=== PATIENT | female | born 1930 | race Hispanic/Latino ===

== ENCOUNTER 2017-01-24 16:37 | Inpatient (IN) | payer MEDICAID, MEDICARE ==
[2017-01-24 16:38] VITALS: BMI 37.9
--- NOTE | 2017-01-24 17:46 | ED PDOC ---
Arrival/HPI - General Chief Complaint: Weakness/Neurological Deficit Time Seen by Provider: 01/24/17 17:13 Historian: Patient - History of Present Illness Narrative History of Present Illness (Text): 01/24/17 17:43 87-year-old female presents today with generalized weakness. Patient states since yesterday she has just been feeling generally weak and dizzy. Patient states 3 days ago she did fall and hit her head. She denies loss of consciousness at that time. She denies chest pain or shortness of breath. Denies fevers or chills. She is complaining of swelling in the right lower leg. She denies abdominal pain. Patient states her appetite has been good. Patient denies sick contacts at home. Patient denies blurred vision. Patient is complaining of frontal headache that she is unable to describe. Denies neck or back pain. No other complaints Time/Duration: Other (1 day) Symptom Onset: Gradual Symptom Course: Worsening Quality: Unable to Describe Severity Level: 2 Past Medical History - Provider Review Nursing Documentation Reviewed: Yes - Travel History Have you recently traveled outside [place] w/in the past 3 mons?: No - Infectious Disease Hx of Infectious Diseases: None - Tetanus Immunization Tetanus Immunization: Unknown - Cardiac Hx Heart Murmur: Yes Hx Hypertension: Yes Hx Peripheral Edema: Yes Other/Comment: CABG/CAD - Renal Hx Renal Failure: Yes - Endocrine/Metabolic Hx Diabetes Mellitus Type 2: Yes - Musculoskeletal/Rheumatological Hx Falls: No Hx Fractures: Yes (RLE) - Gastrointestinal Hx Gall Bladder Disease: Yes (Gallstones) - Genitourinary/Gynecological Hx Incontinence: Yes - Psychiatric Hx Depression: No Hx Emotional Abuse: No Hx Physical Abuse: No Hx Substance Use: No - Surgical History Hx Coronary Stent: Yes - Anesthesia Hx Anesthesia: Yes Hx Anesthesia Reactions: No Hx Malignant Hyperthermia: No - Suicidal Assessment Feels Threatened In Home Enviroment: No Family/Social History - Physician Review Nursing Documentation Reviewed: Yes Family/Social History: Unknown Family HX Smoking Status: Never Smoked Hx Alcohol Use: No Hx Substance Use: No Allergies/Home Meds Allergies/Adverse Reactions: Allergies No Known Allergies Allergy (Verified 09/21/11 19:14) Home Medications: Home Meds Medication Instructions Recorded Confirmed Fosinopril [Monopril] 10 mg PO DAILY 12/19/12 01/24/17 Furosemide [Lasix] 20 mg PO TID 12/19/12 01/24/17 Insulin Human (NPH)/Regular 35 units SC DAILY 12/19/12 01/24/17 [Novolin 70/30 (70/30 units/ml) 10 ml] Potassium Chloride 10 meq PO DAILY 12/19/12 01/24/17 Zolpidem [Ambien] 10 mg PO HS 12/19/12 01/24/17 Aspirin [Aspirin Chewable] 1 tab PO DAILY 01/24/17 01/24/17 Docusate [Colace] 1 cap PO BID 01/24/17 01/24/17 Insulin Human (NPH)/Regular 30 units SC HS 01/24/17 01/24/17 [Novolin 70/30 (70/30 units/ml) 10 ml] Omeprazole [Omeprazole] 1 tab PO BID 01/24/17 01/24/17 Simvastatin [Zocor] 1 tab PO HS 01/24/17 01/24/17 Review of Systems - Review of Systems Constitutional: Fatigue, Other (generalized weakness). absent: Fevers Respiratory: absent: SOB, Cough Cardiovascular: absent: Chest Pain, Palpitations Gastrointestinal: absent: Abdominal Pain, Diarrhea, Nausea, Vomiting Genitourinary Female: absent: Dysuria Musculoskeletal: absent: Arthralgias, Back Pain, Neck Pain Skin: absent: Rash, Pruritis Neurological: Headache, Dizziness Psychiatric: absent: Anxiety, Depression, Suicidal Ideation Physical Exam Vital Signs Reviewed: Yes Vital Signs Temp Pulse Resp BP Pulse Ox 01/24/17 20:04 121/48 L 01/24/17 17:16 98.0 F 86 18 121/61 95 Temperature: Afebrile Blood Pressure: Normal Pulse: Regular Respiratory Rate: Normal Appearance: Positive for: Well-Appearing, Non-Toxic, Comfortable Pain Distress: None Mental Status: Positive for: Alert and Oriented X 3 - Systems Exam Head: Present: Atraumatic. No: Tenderness, Contusion, Swelling Pupils: Present: PERRL Extroacular Muscles: Present: EOMI Conjunctiva: Present: Normal Mouth: Present: Moist Mucous Membranes Neck: Present: Normal Range of Motion, Trachea Midline Respiratory/Chest: Present: Good Air Exchange, Rales (slight rales at the bases bilaterally), Rhonchi. No: Respiratory Distress, Accessory Muscle Use, Wheezes , Tender to Palpation Cardiovascular: Present: Regular Rate and Rhythm Abdomen: No: Tenderness Upper Extremity: Present: Normal ROM Lower Extremity: Present: Edema (+ right calf edema, no tenderness, no erythema; ). No: CALF TENDERNESS Neurological: Present: GCS=15, Speech Normal Skin: Present: Warm, Dry, Normal Color Psychiatric: Present: Alert, Oriented x 3 Medical Decision Making ED Course and Treatment: 01/24/17 17:54 87yr old female with generalized weakness. cbc wnl cmp glucose; 137 trop: 0.03 BNP:1950 ekg; NSR with sinus arrhythmia at 85 bpm, no ST elevations, QTC 533 cxrFINDINGS: Examination limited by habitus. LUNGS: Biapical pleural thickening. Right hilar prominence. Mild to moderate interstitial prominence may reflect infection or edema. Please note that chest x-ray has limited sensitivity for the detection of pulmonary masses. PLEURA: No significant pleural effusion identified. No definite pneumothorax . CARDIOVASCULAR: Median sternotomy wires. Cardiomegaly. Dense atherosclerotic calcifications of the aorta. OSSEOUS STRUCTURES: Degenerative changes. Osseous demineralization. VISUALIZED UPPER ABDOMEN: Unremarkable. OTHER FINDINGS: None. IMPRESSION: Biapical pleural thickening. Right hilar prominence. Mild to moderate interstitial prominence may reflect infection or edema. Cardiomegaly. ua: + leukocytes head ct: FINDINGS: LIMITATIONS: Asymmetric positioning of the patient's head in the CT gantry. BRAIN: Focal area of low density is seen in the left basal ganglia, most likely representing an old/chronic lacunar infarct. No significant acute abnormality identified. Diffuse, age-related cortical atrophy and ventriculomegaly. No acute hemorrhage seen within the brain. No acute extra- axial fluid collections visualized. No evidence of significant mass effect within the brain. No CT findings to suggest an acute, large territorial infarct, however, small or early acute infarcts may not be visible on CT. VENTRICLES: No evidence of significant hydrocephalus. BONES/JOINTS: No acute fractures or other acute bony abnormality noted. SOFT TISSUES: No acute abnormality of the visualized soft tissues is seen. SINUSES: Small fluid level in the left sphenoid sinus, most likely secondary to mild acute sinusitis. Remaining visualized paranasal sinuses appear clear. MASTOID AIR CELLS: Mastoid air cells appear clear. IMPRESSION: - No acute findings seen within the brain. - See above for remaining findings. venous duplex right lower leg: no dvt 01/24/17 19:28 pt resting comfortably in er. urine culture pending blood cultures pending will start patient on rocephin IV for uti as cause of generalized weakness. laxis IV 01/24/17 20:[address] vazquez, will admit observational status to tele for CHF exacerbation with UTI and generalized weakness. he would like 40mg of laxis IV, rocephin IV. and cardiology consult with dr. monroy. all results discussed with patient/family. impression; UTI, chf exacerbation, generalized weakness admit observational status to tele. - Lab Interpretations Lab Results: 01/24/17 18:00 01/24/17 18:00 Lab Results 01/24/17 19:10: Urine Color Yellow, Urine Appearance Cloudy, Urine pH 7.0, Ur Specific [place] 1.010, Urine Protein Negative, Urine Glucose (UA) Negative, Urine Ketones Negative, Urine Blood Trace-intact H, Urine Nitrate Negative, Urine Bilirubin Negative, Urine Urobilinogen 2.0 H, Ur Leukocyte Esterase Large H, Urine RBC 1 - 3, Urine WBC 10 - 15, Ur Epithelial Cells 0 - 2, Urine Bacteria Few 01/24/17 18:00: WBC 6.2, RBC 3.79, Hgb 13.1, Hct 37.9, MCV 100.0, MCH 34.6, MCHC 34.6, RDW 13.1, Plt Count 166, MPV 11.7 H, Gran % 64.8, Lymph % (Auto) 20.2 L, [place] % (Auto) 13.5 H, Eos % (Auto) 1.3 L, Baso % (Auto) 0.2, Gran # 4.04 , Lymph # 1.3, [place] # 0.8 H, Eos # 0.1, Baso # 0.01 01/24/17 18:00: Sodium 141, Potassium 3.9, Chloride 104, Carbon Dioxide 27, Anion Gap 14, BUN 13, Creatinine 0.9, Est GFR ( Amer) > 60, Est GFR (Non- Af Amer) 59, Random Glucose 137 H, Calcium 8.9, Total Bilirubin 1.5 H, AST 33, ALT 25, Alkaline Phosphatase 75, Lactate Dehydrogenase 722 H, Total Creatine Kinase 448 H, CK-MB (CK-2) 1.9, CK-MB (CK-2) % Cancelled, Troponin I 0.03, NT- Pro-B Natriuret Pep 1950 H, Total Protein 7.1, Albumin 3.9, Globulin 3.3, Albumin/Globulin Ratio 1.2 01/24/17 16:39: POC Glucose (mg/dL) 167 H - RAD Interpretation Radiology Orders: 01/24/17 17:14 HEAD W/O CONTRAST [CT] Stat CHEST PORTABLE [RAD] Stat DUPLEX LOWER EXTRM VEIN RIGHT [US] Stat - Medication Orders Current Medication Orders: Discontinued Medications Furosemide (Lasix) 40 mg IVP STAT STA Stop: 01/24/17 19:58 Last Admin: 01/24/17 20:04 Dose: 40 mg Ceftriaxone Sodium (Rocephin 1 Gram Ivpb) 1 gm in 100 mls @ 200 mls/hr IVPB STAT STA PRN Reason: Protocol Stop: 01/24/17 20:26 Last Admin: 01/24/17 20:08 Dose: 200 mls/hr Disposition/Present on Arrival - Present on Arrival Any Indicators Present on Arrival: No History of DVT/PE: No History of Uncontrolled Diabetes: No Urinary Catheter: No History of Decub. Ulcer: No History Surgical Site Infection Following: None - Disposition Have Diagnosis and Disposition been Completed?: Yes Diagnosis: UTI (urinary tract infection), Generalized weakness, CHF (congestive heart failure) Disposition: HOSPITALIZED Disposition Time: 19:30 Patient Plan: Admission Patient Problems: Current Active Problems Problem Status Onset CHF (congestive heart failure) Acute Generalized weakness Acute UTI (urinary tract infection) Acute Condition: FAIR
--- NOTE | 2017-01-24 17:58 | RAD ---
HISTORY: weakness COMPARISON: Chest x-ray performed 12/21/12 TECHNIQUE: Chest, one view. FINDINGS: Examination limited by habitus. LUNGS: Biapical pleural thickening. Right hilar prominence. Mild to moderate interstitial prominence may reflect infection or edema. Please note that chest x-ray has limited sensitivity for the detection of pulmonary masses. PLEURA: No significant pleural effusion identified. No definite pneumothorax . CARDIOVASCULAR: Median sternotomy wires. Cardiomegaly. Dense atherosclerotic calcifications of the aorta. OSSEOUS STRUCTURES: Degenerative changes. Osseous demineralization. VISUALIZED UPPER ABDOMEN: Unremarkable. OTHER FINDINGS: None. IMPRESSION: Biapical pleural thickening. Right hilar prominence. Mild to moderate interstitial prominence may reflect infection or edema. Cardiomegaly.
[2017-01-24 18:11] LABS: BASO # 0.01 K/mm3 (0.0-2.0); BASO % 0.2 % (0.0-3.0); EOS # 0.1 (0.0-0.7); EOS % 1.3 % (1.5-5.0); GRAN # 4.04 (1.4-6.5); GRAN % 64.8 % (50.0-68.0); HEMATOCRIT 37.9 % (36.0-48.0); LYMPH # 1.3 (1.2-3.4); LYMPH % 20.2 % (22.0-35.0); MEAN CORPUSCULAR HEMOGLOBIN 34.6 pg (25.0-35.0); MEAN CORPUSCULAR HGB CONC 34.6 g/dl (31.0-37.0); MEAN PLATELET VOLUME 11.7 fl (7.0-11.0); MONO # 0.8 (0.1-0.6); MONO % 13.5 % (1.0-6.0); RED CELL DISTRIBUTION WIDTH 13.1 % (11.5-14.5); WHITE BLOOD COUNT 6.2 10^3/ul (4.5-11.0)
[2017-01-24 18:22] LABS: ALB/GLOB RATIO 1.2 (1.1-1.8); ALKALINE PHOSPHATASE 75 U/L (38-126); ALT/SGPT 25 U/L (7-56); AST/SGOT 33 U/L (14-36); BILIRUBIN,TOTAL 1.5 mg/dL (0.2-1.3); BLOOD UREA NITROGEN 13 mg/dL (7-21); CALCIUM 8.9 mg/dL (8.4-10.5); CARBON DIOXIDE 27 mmol/L (21-33); CHLORIDE 104 mmol/L (98-107); GFR AFRICAN-AMERICAN > 60; GLUCOSE,RANDOM 137 mg/dL (70-110); POTASSIUM 3.9 mmol/L (3.6-5.0); SODIUM 141 mmol/L (132-148); TOTAL PROTEIN 7.1 g/dL (5.8-8.3)
[2017-01-24 18:34] LABS: TROPONIN I 0.03 ng/mL
[2017-01-24 19:21] LABS: URINE BILIRUBIN NEGATIVE (NEGATIVE); URINE BLOOD TRACE-INTACT (NEGATIVE); URINE GLUCOSE (UA) NEGATIVE (NEGATIVE); URINE KETONE NEGATIVE (NEGATIVE); URINE LEUKOCYTE ESTERASE LARGE Leu/uL (NEGATIVE); URINE PROTEIN NEGATIVE mg/dL (<30 mg/dL)
--- NOTE | 2017-01-24 19:22 | CT ---
EXAM: CT Head Without Intravenous Contrast EXAM DATE/TIME: 01/24/2017 5:14 PM CLINICAL HISTORY: 87 years old, female; Signs and symptoms; Dizziness; Patient HX: Fall/head injury 3 days ago/genearlized weakness TECHNIQUE: Axial computed tomography images of the head/brain without intravenous contrast. All CT scans at this facility use one or more dose reduction techniques, viz.: automated exposure control; ma/kV adjustment per patient size (including targeted exams where dose is matched to indication; i.e. head); or iterative reconstruction technique. COMPARISON: No relevant prior studies available. FINDINGS: LIMITATIONS: Asymmetric positioning of the patient's head in the CT gantry. BRAIN: Focal area of low density is seen in the left basal ganglia, most likely representing an old/chronic lacunar infarct. No significant acute abnormality identified. Diffuse, age-related cortical atrophy and ventriculomegaly. No acute hemorrhage seen within the brain. No acute extra-axial fluid collections visualized. No evidence of significant mass effect within the brain. No CT findings to suggest an acute, large territorial infarct, however, small or early acute infarcts may not be visible on CT. VENTRICLES: No evidence of significant hydrocephalus. BONES/JOINTS: No acute fractures or other acute bony abnormality noted. SOFT TISSUES: No acute abnormality of the visualized soft tissues is seen. SINUSES: Small fluid level in the left sphenoid sinus, most likely secondary to mild acute sinusitis. Remaining visualized paranasal sinuses appear clear. MASTOID AIR CELLS: Mastoid air cells appear clear. IMPRESSION: - No acute findings seen within the brain. - See above for remaining findings.
[2017-01-24 19:24] LABS: URINE APPEARANCE CLOUDY (CLEAR); URINE COLOR YELLOW (YELLOW)
[2017-01-24 19:33] LABS: URINE BACTERIA FEW (NEG); URINE EPITHELIAL CELLS 0 - 2 /hpf (0-5)
[2017-01-24] MEDS ORDERED: cefTRIAXone 1 gm 1 GM/100 ML BAG IVPB STA (19:57)
[2017-01-25 07:08] LABS: ALB/GLOB RATIO 1.2 (1.1-1.8); ALKALINE PHOSPHATASE 78 U/L (38-126); ALT/SGPT 33 U/L (7-56); AST/SGOT 28 U/L (14-36); BLOOD UREA NITROGEN 12 mg/dL (7-21); CALCIUM 8.5 mg/dL (8.4-10.5); CARBON DIOXIDE 26 mmol/L (21-33); CHLORIDE 106 mmol/L (98-107); GFR AFRICAN-AMERICAN > 60; GLUCOSE,RANDOM 140 mg/dL (70-110); POTASSIUM 3.8 mmol/L (3.6-5.0); SODIUM 142 mmol/L (132-148); TOTAL PROTEIN 6.8 g/dL (5.8-8.3)
[2017-01-25 07:12] LABS: BASO # 0.01 K/mm3 (0.0-2.0); BASO % 0.2 % (0.0-3.0); EOS # 0.1 (0.0-0.7); EOS % 1.8 % (1.5-5.0); GRAN # 3.66 (1.4-6.5); GRAN % 65.1 % (50.0-68.0); HEMATOCRIT 37.6 % (36.0-48.0); LYMPH # 1.3 (1.2-3.4); LYMPH % 22.6 % (22.0-35.0); MEAN CELL VOLUME 101.3 fl (80.0-105.0); MEAN CORPUSCULAR HEMOGLOBIN 33.7 pg (25.0-35.0); MEAN CORPUSCULAR HGB CONC 33.2 g/dl (31.0-37.0); MEAN PLATELET VOLUME 11.6 fl (7.0-11.0); MONO # 0.6 (0.1-0.6); MONO % 10.3 % (1.0-6.0); RED CELL DISTRIBUTION WIDTH 13.4 % (11.5-14.5); WHITE BLOOD COUNT 5.6 10^3/ul (4.5-11.0)
[2017-01-25 07:17] LABS: TROPONIN I 0.03 ng/mL
[2017-01-25] MEDS: Insulin Reg-MEDIUM-Coverage SC SCH ×4 (07:28→22:05)
--- NOTE | 2017-01-25 08:05 | US ---
PROCEDURE: Right lower extremity venous US HISTORY: Leg pain and swelling. Evaluate for DVT. PHYSICIAN(S): Mayo Sprague M.D. TECHNIQUE: Duplex sonography and color-flow Doppler with graded compression were used to evaluate the deep venous system of the right lower extremity. The exam is limited by body habitus and edema. The lower femoral veins and tibial veins are not well seen FINDINGS: The visualized deep venous system of the right lower extremity is sonographically normal and compressible. Normal waveforms and augmentation are seen. There is no sonographic evidence for deep venous thrombosis in the visualized segments of the right lower extremity. IMPRESSION: 1. No sonographic evidence for deep venous thrombosis in the visualized segments of the right lower extremity. 2. Limited study
--- NOTE | 2017-01-25 16:25 | CARD ---
APPROVED REPORT EKG Measurement Heart [id number] <Conclusion> Normal sinus rhythm with sinus arrhythmia Low voltage QRS Nonspecific ST & T wave abnormality, Prolonged QT Abnormal ECG
--- NOTE | 2017-01-25 18:23 | HP ---
HISTORY OF PRESENT ILLNESS: The patient is an 87-year-old woman with past medical history of congestive heart failure, insulin dependent diabetes mellitus, hyperlipidemia, hypertension, and COPD who presented to with a several day history of worsening lower extremity edema, orthopnea, and exertional dyspnea who is admitted to the telemetry tadeo for continue management of vucjj-si-fqccdzi systolic heart failure exacerbation. The patient states that she was in a usual state of health until approximately 1 week prior to presentation when she developed the aforementioned symptoms. She denied chest pain or palpitation associated with her symptoms. The patient does report compliance with her medications, however, she appears to be noncomplying with her dietary recommendations and her diet consist mainly of frozen TV dinners which she was informed are high in sodium content. On the day of presentation to the emergency department, the patient was noted to complain of malaise and generalized fatigue and was brought to the emergency department by her son for further evaluation. Upon arrival to ED, she was noted to be afebrile and hemodynamically stable but was mildly tachypneic. Laboratory studies which were obtained demonstrated an elevated BNP of 1950 and a chest x-ray demonstrated cardiomegaly with pulmonary venous congestion suggestive of acute CHF. The patient received intravenous Lasix and was admitted to the telemetry tadeo for further management of llzbh-hc-[id number] systolic heart failure exacerbation. PAST MEDICAL HISTORY: As per HPI, also osteoarthritis and peptic ulcer disease. PAST SURGICAL HISTORY: PCI with stent placement and surgical repair of right tibial fracture. ALLERGIES: NO KNOWN DRUG ALLERGIES. MEDICATIONS: 1. Aspirin 81 mg p.o. daily. 2. Lipitor 10 mg p.o. daily. 3. Monopril 10 mg p.o. daily. 4. K-Dur 10 mEq p.o. daily. 5. Omeprazole 40 mg p.o. daily. 7. Novolin 70/30, 35 units SC b.i.d. FAMILY HISTORY: Noncontributory. SOCIAL HISTORY: The patient denies any history of toxic habits. REVIEW OF SYSTEMS: A 14-point review of system is negative except as per HPI. PHYSICAL EXAMINATION GENERAL: Obese woman, lying in bed in no apparent distress. VITAL SIGNS: Temperature 98.3, pulse 88, blood pressure 113/77, respiratory rate 20, oxygen saturation 96% on room air. HEENT: PERRL. EOMI. No scleral icterus. No conjunctival pallor. NECK: No JVD. LUNGS: Bibasilar crackles with few scattered rhonchi. CARDIOVASCULAR: Regular rate and rhythm. Normal S1 and S2. ABDOMEN: Obese. Normoactive bowel sounds. Soft, nontender and nondistended. EXTREMITIES: Trace lower extremity edema bilaterally. NEUROLOGIC: Awake, alert and oriented x3. No focal motor deficits. LABORATORY DATA: WBC 5.6, hemoglobin 12.5, hematocrit 37 and platelets 158. Chemistry revealed and unremarkable. Troponin negative x2 sets. BNP 1950. IMAGING STUDIES: Chest x-ray demonstrates bilateral pleural thickening with right hilar prominence and pulmonary venous congestion and cardiomegaly. ASSESSMENT: The patient is an 87-year-old woman with multiple medical comorbidities including coronary artery disease status post myocardial infarction status post percutaneous coronary intervention with stent placement, ischemic cardiomyopathy, chronic congestive heart failure, chronic obstructive pulmonary disease and hypertension who presented to with a several day history of progressively worsening dyspnea with exertion, lower extremity edema and two-pillow orthopnea who is admitted to the telemetry tadeo for management of uesai-ii-hvjmwjz systolic heart failure exacerbation. PLAN: 1. Evsws-qd-hazsgxg systolic heart failure exacerbation. The patient is status post IV Lasix 40 mg in the emergency department. Continue with Lasix 20 mg IV q.12. Continue to monitor strict ins and outs. Dr. Ovalles of cardiology has been consulted for further evaluation and recommendations and a repeat echocardiogram is ordered and pending. 2. CAD status post RI status post PCI with stent placement. The patient is hemodynamically stable and chest pain free. Continue with aspirin 81 mg p.o. daily, Lipitor 10 mg p.o. daily. As above Dr. Ovalles of cardiology has been consulted for further evaluation and recommendations. 3. Ischemic cardiomyopathy. Continue with care as per #1 and 2. As above a transthoracic echocardiogram is ordered and pending. 4. Hypertension. Blood pressure controlled. Continue with lisinopril 10 mg p.o. daily. 5. Hyperlipidemia. Continue with Lipitor 10 mg p.o. daily. 6. Osteoarthritis. Continue with Tylenol p.r.n. pain. 7. Peptic ulcer disease. Continue with Protonix 40 mg p.o. daily. 8. Insulin dependent diabetes mellitus. Continue to monitor fingerstick q. a.c. and at bedtime and with medium dose insulin sliding scale. We will adjust glycemic agents as needed. 9. COPD. Continue with supplemental oxygen and bronchodilators as needed. 10. Prophylaxis. The patient is on Protonix for underlying PUD thus GI prophylaxis not indicated. DVT prophylaxis not indicated as the patient is ambulatory. CODE STATUS: FULL CODE. Laci Javed MD
[2017-01-25] MEDS ORDERED: Alum-Mag Hydrox-Simethicone Susp (30 mL) PO PRN (18:40)
[2017-01-26] MEDS ORDERED: Enoxaparin 40 mg Syringe SC SCH (01:30)
--- NOTE | 2017-01-26 01:47 | CP.PCM.PN ---
Subjective - Date & Time of Evaluation Date of Evaluation: 01/25/17 Time of Evaluation: 23:55 - Subjective Subjective: Pt seen at the request of her RN for noting a high heart rate(fluctuating upto 130s to 150) and a change in her rhythm from NSR to Afib since earlier today.She denies any c/o SOB,chest pain or calf pain.She is requesting for something to sleep.Takes Ambien at home. Patient was admitted for UTI,Generalized weakness and CHF exacerbation. Her VS are BP 133/77 R20 HR 117 O2 sat RA is 97 T 98.0 PMH:Osteo arthritis,PUD,PCI with stent placement. Objective - Vital Signs/Intake and Output Vital Signs (last 24 hours): Temp Pulse Resp BP Pulse Ox 97.7 F 123 H 18 118/60 94 L 01/25/17 16:55 01/25/17 22:00 01/25/17 16:55 01/25/17 21:00 01/25/17 16:55 Intake and Output: 01/25/17 01/26/17 18:59 06:59 Intake Total 360 Balance 360 - Medications Medications: Current Medications Acetaminophen (Tylenol 325mg Tab) 650 mg PO Q6H PRN PRN Reason: Headache Last Admin: 01/25/17 09:22 Dose: 650 mg Al Hydrox/Mg Hydrox/Simethicone (Maalox Plus 30 Ml) 30 ml PO Q6H PRN PRN Reason: Indigestion / Heartburn Aspirin (Aspirin Chewable) 81 mg PO DAILY [facility] Last Admin: 01/25/17 09:21 Dose: 81 mg Atorvastatin Calcium (Lipitor) 10 mg PO DIN [facility] Last Admin: 01/25/17 17:34 Dose: 10 mg Furosemide (Lasix) 20 mg IVP Q12 [facility] Last Admin: 01/25/17 21:00 Dose: 20 mg Insulin Human Regular (Humulin R Med) 0 units SC ACHS [facility] PRN Reason: Protocol Last Admin: 01/25/17 22:05 Dose: Not Given Lisinopril (Zestril) 10 mg PO DAILY [facility] Last Admin: 01/25/17 09:21 Dose: 10 mg Pantoprazole Sodium (Protonix Ec Tab) 40 mg PO 0600 [facility] - Labs Labs: 01/25/17 06:44 01/25/17 06:44 - Constitutional Appears: No Acute Distress - Head Exam Head Exam: ATRAUMATIC, NORMAL INSPECTION, NORMOCEPHALIC - Eye Exam Eye Exam: PERRL - ENT Exam ENT Exam: Mucous Membranes Moist - Neck Exam Neck Exam: Normal Inspection - Respiratory Exam Respiratory Exam: NORMAL BREATHING PATTERN (Bibasilar crepitations noted.) - Cardiovascular Exam Cardiovascular Exam: Tachycardia, Irregular Rhythm - GI/Abdominal Exam GI & Abdominal Exam: Soft, Normal Bowel Sounds. absent: Tenderness - Extremities Exam Extremities Exam: absent: Calf Tenderness, Pedal Edema Additional comments: No cyanosis - Neurological Exam Neurological Exam: Alert, Awake, Oriented x3 - Psychiatric Exam Psychiatric exam: Normal Affect - Skin Skin Exam: Dry, Warm Assessment and Plan - Assessment and Plan (Free Text) Assessment: Afib with RVR Insomnia Plan: EKG done stat shows AFib with RVR rate of 133/min,Minimal ST- Tchanges noted in lateral leads. Cardizem 10 mg iv push ordered now Lovenox 100 mg sc now then q 12 h Ambien 5 m po now Mag level ,BNP, troponin 1 stat,then in 8hours.
[2017-01-26 02:55] LABS: TROPONIN I 0.24 ng/mL
[2017-01-26] MEDS ORDERED: diltiaZEM IVPB 100mg in NS 100 ML IV PRN (03:12)
[2017-01-26] MEDS: diltiaZEM IVPB 100mg in NS 100 ML IV PRN ×3 (05:14→21:58)
[2017-01-26] MEDS: Pantoprazole 40 mg EC Tab PO SCH (05:15)
[2017-01-26 07:09] LABS: BASO # 0.02 K/mm3 (0.0-2.0); BASO % 0.4 % (0.0-3.0); EOS # 0.3 (0.0-0.7); EOS % 5.2 % (1.5-5.0); GRAN # 2.21 (1.4-6.5); GRAN % 46.4 % (50.0-68.0); LYMPH # 1.7 (1.2-3.4); LYMPH % 35.2 % (22.0-35.0); MEAN CELL VOLUME 99.5 fl (80.0-105.0); MEAN CORPUSCULAR HEMOGLOBIN 33.4 pg (25.0-35.0); MEAN CORPUSCULAR HGB CONC 33.6 g/dl (31.0-37.0); MEAN PLATELET VOLUME 11.3 fl (7.0-11.0); MONO # 0.6 (0.1-0.6); MONO % 12.8 % (1.0-6.0); WHITE BLOOD COUNT 4.8 10^3/ul (4.5-11.0)
[2017-01-26 07:28] LABS: ALB/GLOB RATIO 1.1 (1.1-1.8); ALKALINE PHOSPHATASE 76 U/L (38-126); ALT/SGPT 27 U/L (7-56); AST/SGOT 28 U/L (14-36); BILIRUBIN,TOTAL 0.7 mg/dL (0.2-1.3); BLOOD UREA NITROGEN 14 mg/dL (7-21); CALCIUM 8.6 mg/dL (8.4-10.5); CARBON DIOXIDE 26 mmol/L (21-33); CHLORIDE 106 mmol/L (98-107); GFR AFRICAN-AMERICAN > 60; GLUCOSE,RANDOM 160 mg/dL (70-110); POTASSIUM 3.6 mmol/L (3.6-5.0); SODIUM 141 mmol/L (132-148); TOTAL PROTEIN 6.6 g/dL (5.8-8.3)
[2017-01-26] MEDS: Insulin Reg-MEDIUM-Coverage SC SCH ×4 (08:26→22:02)
--- NOTE | 2017-01-26 09:05 | CON ---
DATE: 01/26/2017 CARDIOLOGY CONSULTATION HISTORY OF PRESENT ILLNESS: The patient is an 87-year-old woman who presents with diffuse abdominal pain. In the hospital, she was found to have a zcv-LY-flknhrp elevation myocardial infarction understanding as well as periods of atrial fibrillation. The patient's past medical history is notable for history of that diabetes mellitus as well as hypercholesterolemia. She suffers from hypertension as well as pedal edema. Her remote history includes multiple PTCA and stent in the past. She has a long history of noncompliance with diet and probably admits to eating ham with cream on a daily basis for the past 10 years. She is on Lasix three times a day. She denies chest pain. SOCIAL HISTORY: She does not smoke. REVIEW OF SYSTEMS: Diffuse body aches, general malaise as well as chronic pedal edema. PHYSICAL EXAMINATION VITAL SIGNS: Blood pressure is 137/62 and the heart rate is 120s and atrial fibrillation. NECK: Negative JVD. LUNGS: Decreased breath sounds bilaterally. HEART: Reveal S1 and S2. EXTREMITIES: Trace edema. DIAGNOSTIC DATA: EKG shows atrial fibrillation with nonspecific ST-T changes. LABORATORY DATA: Hemoglobin is 13.1. Chemistries: The troponin is 0.24 and 0.20 with a glucose 160 and pro-BNP is 2720. IMPRESSION 1. Atrial fibrillation which is new onset. 2. Zsj-AT-utcogys elevation myocardial infarction. 3. Coronary artery disease. 4. Diabetes mellitus. 5. Obesity. 6. Hypertension. 7. Hypercholesterolemia. PLAN: Given these findings, the patient is currently on IV Cardizem with a heart rate is still poorly controlled. The patient will be anticoagulated. I have discussed the possibility of cardiac catheterization with the patient in detail. The patient refuses at this time. We will continue adding p.o. We will add digoxin to her regimen as well as beginning p.o. Cardizem. Mayo Ovalles MD
[2017-01-26] MEDS: Enoxaparin 100 mg Syringe SC SCH ×2 (11:09→21:03)
--- NOTE | 2017-01-26 14:12 | PN ---
DATE: 01/26/2017 SUBJECTIVE: The patient is seen and examined at bedside in the telemetry tadeo. Overnight, the patient was noted to be tachycardic with a pulse in the 150s and developed new onset atrial fibrillation. She was evaluated by Dr. Castellanos (the house physician) and received Cardizem 10 mg IV and subsequently started on a Cardizem drip. The patient was also started on Lovenox 100 mg q. 12 hours. The patient does report sensing palpitations, but denies chest pain or dyspnea associated with her symptoms; otherwise, she states she feels frustrated because she was looking forward to going home today, but offers no other complaints. PHYSICAL EXAMINATION VITAL SIGNS: Temperature 98.5, pulse 125, blood pressure 137/62, respiratory rate 18, oxygen saturation 97% on room air. GENERAL: Obese woman, sitting up in bed in no apparent distress. HEENT: PERRL. EOMI. No scleral icterus. No conjunctival pallor. NECK: No JVD. LUNGS: Decreased breath sounds at the bases, otherwise clear. CARDIOVASCULAR: Tachycardic, irregularly irregular. Normal S1 and S2. ABDOMEN: Obese. Normoactive bowel sounds. Soft, nontender, and nondistended. EXTREMITIES: Trace lower extremity edema bilaterally. NEUROLOGIC: Awake, alert, and oriented x3. No focal motor deficits. LABORATORY DATA: CBC reviewed and unremarkable. CMP reviewed and unremarkable. Troponin 0.24. ASSESSMENT: The patient is an 87-year-old woman with multiple medical comorbidities including coronary artery disease, status post myocardial infarction, status post percutaneous coronary intervention with stent placement; ischemic cardiomyopathy; chronic congestive heart failure; chronic obstructive pulmonary disease; and hypertension, who presented to [facility] with a several-day history of progressively worsening dyspnea with exertion, lower extremity edema, and two-pillow orthopnea and who is admitted to the telemetry tadeo for management of [id number] systolic heart failure exacerbation, who subsequently developed atrial fibrillation with rapid ventricular response and non-ST elevation myocardial infarction. PLAN: 1. Non-ST elevation CA, and Dr. Ovalles noted and appreciated and the patient has been started on betagblockade consisting of Lopressor 25 mg p.o. b.i.d. A transthoracic echocardiogram has been ordered and is pending for further evaluation and to assess for any wall motion abnormalities. Continue with care as per Dr. Ovalles. 2. Atrial fibrillation with rapid ventricular response, new onset. As above, Dr. Ovalles of Cardiology has been consulted for further evaluation and recommendations and the patient has been started on Cardizem drip as well as Lopressor for rate control. The patient also remains on Lovenox 100 mg SC q. 12 hours. Continue with care as per Dr. Ovalles. 3. Acute on chronic systolic heart failure exacerbation. The patient has been diuresing nicely since admission; although I's and O's are difficult to monitor given that the patient is incontinent of urine. Continue with Lasix 20 mg IV q. 12 hours. 4. Ischemic cardiomyopathy. Continue with care as above. As above, echocardiogram is ordered and pending. 5. Hypertension. Blood pressure controlled. Continue with current medications. 6. Hyperlipidemia. Continue with Lipitor 10 mg p.o. daily. 7. Osteoarthritis. Continue with Tylenol as needed. 8. Peptic ulcer disease. Continue with Protonix. 9. Insulin dependent diabetes mellitus. Continue to monitor fingerstick q. a.c. and at bedtime and continue with medium-dose insulin sliding scale for coverage. 10. COPD. Continue with supplemental oxygen as needed. 11. Prophylaxis. The patient remains on Protonix and Lovenox. CODE STATUS: FULL CODE. Laci Javed MD
--- NOTE | 2017-01-26 23:29 | CARD ---
APPROVED REPORT EKG Measurement Heart [id number] <Conclusion> Atrial fibrillation with rapid ventricular response ST & T wave abnormality, consider anterolateral ischemia or digitalis effect Abnormal ECG
--- NOTE | 2017-01-27 02:54 | CP.PCM.PN ---
Subjective - Date & Time of Evaluation Date of Evaluation: 01/27/17 Time of Evaluation: 02:50 - Subjective Subjective: S:Patient was seen because she requested a sleeping pill. Yesterday she received Ambien 5 mg PO for sleep which helped her. Has no other complaints now. Medical record was reviewed. O: Last Vital Signs 3 Temp 98.7 F 01/26/17 20:00 Pulse 79 01/26/17 22:00 Resp 18 01/26/17 20:00 BP 118/56 L 01/26/17 21:00 Pulse Ox 98 01/26/17 20:00 Awake, alert , not in distress. LUNGS: normal breathing pattern. A: Adjustment insomnia. P: Ambien 5 mg po stat. Objective - Vital Signs/Intake and Output Vital Signs (last 24 hours): Temp Pulse Resp BP Pulse Ox 98.7 F 79 18 118/56 L 98 01/26/17 20:00 01/26/17 22:00 01/26/17 20:00 01/26/17 21:00 01/26/17 20:00 Intake and Output: 01/26/17 01/27/17 18:59 06:59 Intake Total 640 100 Balance 640 100 - Medications Medications: Current Medications Acetaminophen (Tylenol 325mg Tab) 650 mg PO Q6H PRN PRN Reason: Headache Last Admin: 01/26/17 12:30 Dose: 650 mg Al Hydrox/Mg Hydrox/Simethicone (Maalox Plus 30 Ml) 30 ml PO Q6H PRN PRN Reason: Indigestion / Heartburn Last Admin: 01/26/17 12:30 Dose: 30 ml Aspirin (Aspirin Chewable) 81 mg PO DAILY [facility] Last Admin: 01/26/17 11:09 Dose: 81 mg Atorvastatin Calcium (Lipitor) 10 mg PO DIN [facility] Last Admin: 01/26/17 18:32 Dose: 10 mg Diltiazem HCl (Cardizem) 60 mg PO TID [facility] Last Admin: 01/26/17 18:32 Dose: 60 mg Enoxaparin Sodium (Lovenox) 100 mg SC Q12 [facility] PRN Reason: Protocol Last Admin: 01/26/17 21:03 Dose: 100 mg Furosemide (Lasix) 20 mg IVP Q12 [facility] Last Admin: 01/26/17 21:00 Dose: 20 mg diltiaZEM IVPB 100mg in NS (Cardizem 100mg In Ns) 100 mls @ 10 mls/hr IV .Q10H PRN; Protocol; 10 MG/HR PRN Reason: TITRATE PER MD ORDER Last Admin: 01/26/17 21:58 Dose: 10 mg/hr, 10 mls/hr Insulin Human Regular (Humulin R Med) 0 units SC ACHS [facility] PRN Reason: Protocol Last Admin: 01/26/17 22:02 Dose: Not Given Lisinopril (Zestril) 10 mg PO DAILY [facility] Last Admin: 01/26/17 11:08 Dose: 10 mg Metoprolol Tartrate (Lopressor) 25 mg PO BID [facility] Last Admin: 01/26/17 18:33 Dose: 25 mg Pantoprazole Sodium (Protonix Ec Tab) 40 mg PO 0600 [facility] Last Admin: 01/26/17 05:15 Dose: 40 mg
[2017-01-27] MEDS: Pantoprazole 40 mg EC Tab PO SCH (06:27)
[2017-01-27 07:52] LABS: BASO # 0.02 K/mm3 (0.0-2.0); BASO % 0.5 % (0.0-3.0); EOS # 0.3 (0.0-0.7); EOS % 5.9 % (1.5-5.0); GRAN # 1.9 (1.4-6.5); GRAN % 44.7 % (50.0-68.0); HEMATOCRIT 38.2 % (36.0-48.0); LYMPH # 1.7 (1.2-3.4); LYMPH % 39.5 % (22.0-35.0); MEAN CELL VOLUME 99.5 fl (80.0-105.0); MEAN CORPUSCULAR HEMOGLOBIN 34.4 pg (25.0-35.0); MEAN CORPUSCULAR HGB CONC 34.6 g/dl (31.0-37.0); MEAN PLATELET VOLUME 11.1 fl (7.0-11.0); MONO # 0.4 (0.1-0.6); MONO % 9.4 % (1.0-6.0); RED CELL DISTRIBUTION WIDTH 12.8 % (11.5-14.5); WHITE BLOOD COUNT 4.3 10^3/ul (4.5-11.0)
[2017-01-27] MEDS: diltiaZEM IVPB 100mg in NS 100 ML IV PRN (08:04)
[2017-01-27 08:10] LABS: ALB/GLOB RATIO 1.1 (1.1-1.8); ALKALINE PHOSPHATASE 75 U/L (38-126); ALT/SGPT 32 U/L (7-56); AST/SGOT 25 U/L (14-36); BILIRUBIN,TOTAL 0.6 mg/dL (0.2-1.3); BLOOD UREA NITROGEN 19 mg/dL (7-21); CALCIUM 8.8 mg/dL (8.4-10.5); CARBON DIOXIDE 26 mmol/L (21-33); CHLORIDE 106 mmol/L (98-107); GFR AFRICAN-AMERICAN > 60; GLUCOSE,RANDOM 178 mg/dL (70-110); POTASSIUM 3.5 mmol/L (3.6-5.0); SODIUM 141 mmol/L (132-148); TOTAL PROTEIN 6.6 g/dL (5.8-8.3)
[2017-01-27] MEDS: Insulin Reg-MEDIUM-Coverage SC SCH ×4 (09:30→21:46)
[2017-01-27] MEDS: Enoxaparin 100 mg Syringe SC SCH ×2 (09:30→21:40)
[2017-01-27] MEDS ORDERED: Meropenem 1g/NS 100mL IVPB 1 GM/100 ML PIGGYBACK IVPB STA (10:13)
--- NOTE | 2017-01-27 11:09 | PN ---
SUBJECTIVE: The patient was seen and examined at bedside on the telemetry tadeo. No acute events overnight. The patient is pending TTE to assess LV function and investigate for wall motion abnormalities. This morning she states shes feels well and denies chest pain or palpitations. I had an extensive discussion with her regarding the need for cardiac catheterization due to her NSTEMI but the patient adamantly declines cardiac catheterization at present time. OBJECTIVE: VITAL SIGNS: Temperature 98, pulse 86, blood pressure 124/56, respiratory rate 20, oxygen saturation 96% on room air. GENERAL: Obese woman, lying in bed, in no apparent distress. HEENT: PERRL. EOMI. No scleral icterus. No conjunctival pallor. NECK: No JVD. LUNGS: Decreased breath sounds at the bases, otherwise clear. CARDIOVASCULAR: Regular rate and rhythm. Normal S1 and S2. ABDOMEN: Obese, normoactive bowel sounds. Soft, nontender, and nondistended. EXTREMITIES: Trace lower extremity edema bilaterally. NEUROLOGIC: Awake, alert and oriented x3. No focal motor deficits. LABORATORY DATA: CBC reviewed and unremarkable. CMP reviewed and unremarkable with the exception of potassium of 3.5. ASSESSMENT: The patient is an 87-year-old woman with multiple medical comorbidities including coronary artery disease status post myocardial infarction status post percutaneous coronary intervention with stent placement, ischemic cardiomyopathy, chronic congestive heart failure, COPD and hypertension who presented to [facility] with several day history of progressively worsening dyspnea with exertion, bilateral pedal edema and two- pillow orthopnea who was admitted to the telemetry tadeo for management of acute- on-chronic systolic heart failure exacerbation and whose hospital course was complicated by development of non-ST elevation myocardial infarction and new onset atrial fibrillation with rapid ventricular response. PLAN: 1. NTEMI. Input from Dr. Ovalles noted and appreciated. We will speak with the patient to emphasize the importance of proceeding with a cardiac catheterization. In the interim we will continue with medical management including Lopressor 25 mg p.o. b.i.d., Aspirin 81 mg p.o. daily and Lipitor 10 mg p.o. daily. She remains chest pain free. 2. Atrial fibrillation with rapid ventricular response, new onset. The patient remains on Cardizem drip with attempts being made to transition to oral Cardizem to optimize rate control. We will need to discuss with Dr. Ovalles the continued use of anticoagulation therapy given history of falls in this patient despite her CHADS2 score and may be most prudent to maintain her on aspirin monotherapy. 3. [id number] systolic heart failure exacerbation, resolving. We will continue with Lasix 20 mg IV q. 12 hours for an additional day. Continue on her strict in's and out's. 4. Ischemic cardiomyopathy. Continue with care as above. A transthoracic echocardiogram is pending. 5. Hypertension. Blood pressure controlled. Continue with current medications. 6. Hyperlipidemia. Continue with Lipitor 10 mg p.o. daily. 7. Osteoarthritis. Continue with Tylenol as needed. 8. History of peptic ulcer disease. Continue with Protonix. 9. Insulin-dependent diabetes mellitus. Continue with medium-dose insulin sliding scale. 10. COPD. Continue with supplemental oxygen as needed. 11. Prophylaxis. The patient remains on Protonix and Lovenox. CODE STATUS: FULL CODE. Laci Javed MD MTDWes
--- NOTE | 2017-01-27 13:51 | PN ---
DATE: 01/27/2017 SUBJECTIVE: The patient is chest pain free. Atrial fibrillation finally controlled, 86. PHYSICAL EXAMINATION: VITAL SIGNS: Blood pressure is 104/50, the heart rate in the 80s atrial fibrillation. NECK: Negative JVD. LUNGS: Without rales. HEART: S1 and S2. EXTREMITIES: Without edema. LABORATORY DATA: His hemoglobin is 13.2. Chemistries; glucose is 178. IMPRESSION: 1. Atrial fibrillation. 2. Non-ST elevation myocardial infarction. 3. Diabetes mellitus. 4. Coronary artery disease. 5. Hypertension. 6. Obesity. PLAN: Given these findings, the patient refuses cardiac catheterization despite the risk of progressing to massive ID which has been discussed with the patient in detail. We will taper her off the IV Cardizem today. Mayo Ovalles MD
--- NOTE | 2017-01-27 15:23 | US ---
PROCEDURE: Ultrasound of the Kidneys HISTORY: rule out hydronephrosis COMPARISON: Abdomen and pelvis without contrast 12/19/2012. TECHNIQUE: Sonogram of the kidneys. FINDINGS: RIGHT KIDNEY: Measures: 11.3 x 5.4 x 5 point sick cm. Normal in size, contour and echogenicity. No stone, solid mass lesion or hydronephrosis visualized. A midpole slightly exophytic 4.3 x 3.4 x 3.4 cm cyst is present.a cyst was referenced on the prior CT exam LEFT KIDNEY: Measures: 10.4 x 4.5 x 4.3 cm. Normal in size, contour and echogenicity. No stone, solid mass lesion or hydronephrosis visualized. An upper pole mostly intra cortical 1.8 x 1.6 x 1.8 renal cysts is noted. No prior mention of this on the prior CT noted . The previously CT referenced less than 5 mm nonobstructing left renal calculi are not evident on this exam OTHER FINDINGS: None. IMPRESSION: Bilateral renal cysts. No hydronephrosis
--- NOTE | 2017-01-27 15:26 | CP.PCM.CON ---
History of Present Illness - History of Present Illness History of Present Illness: 87 year old female with PMH of COPD, CAD S/P PCI, chronic CHF with ischemic cardiomyopathy, HTN, morbid obesity with BMI 40 initially came in to [facility] complaining of generalized weakness. She had some dyspnea on exertion but no chest pain. She also denied cough or colds, no headache or dizziness, no chest palpitations, no nausea or vomiting, no abdominal pain, no diarrhea, no dysuria, no flank pain, no suprapubic pain. She is now noted to have non-ST elevation myocardial infarction and is being treated for this. Part of her initial work up included urine cx, which are now showing ESBL E. coli. Infectious Diseases consult is requested to further evaluate and manage. Review of Systems - Review of Systems All systems: reviewed and no additional remarkable complaints except (as per HPI ) Past Patient History - Infectious Disease Hx of Infectious Diseases: None - Tetanus Immunizations Tetanus Immunization: Unknown - Past Social History Smoking Status: Never Smoked - CARDIAC Hx Hypertension: Yes - RENAL Hx Renal Failure: Yes - ENDOCRINE/METABOLIC Hx Diabetes Mellitus Type 2: Yes - MUSCULOSKELETAL/RHEUMATOLOGICAL Hx Falls: Yes - GASTROINTESTINAL Hx Gall Bladder Disease: Yes (Gallstones) - GENITOURINARY/GYNECOLOGICAL Hx Incontinence: Yes - PSYCHIATRIC Hx Depression: No Hx Emotional Abuse: No Hx Physical Abuse: No - SURGICAL HISTORY Hx Coronary Stent: Yes - ANESTHESIA Hx Anesthesia: Yes Hx Anesthesia Reactions: No Hx Malignant Hyperthermia: No Meds Allergies/Adverse Reactions: Allergies Allergy/AdvReac Type Severity Reaction Status Date / Time No Known Allergies Allergy Verified 09/21/11 19:14 - Medications Medications: Current Medications Acetaminophen (Tylenol 325mg Tab) 650 mg PO Q6H PRN PRN Reason: Headache Last Admin: 01/26/17 12:30 Dose: 650 mg Al Hydrox/Mg Hydrox/Simethicone (Maalox Plus 30 Ml) 30 ml PO Q6H PRN PRN Reason: Indigestion / Heartburn Last Admin: 01/26/17 12:30 Dose: 30 ml Aspirin (Aspirin Chewable) 81 mg PO DAILY [facility] Last Admin: 01/26/17 11:09 Dose: 81 mg Atorvastatin Calcium (Lipitor) 10 mg PO DIN [facility] Last Admin: 01/26/17 18:32 Dose: 10 mg Diltiazem HCl (Cardizem) 60 mg PO TID [facility] Last Admin: 01/27/17 09:31 Dose: 60 mg Enoxaparin Sodium (Lovenox) 100 mg SC Q12 [facility] PRN Reason: Protocol Last Admin: 01/27/17 09:30 Dose: 100 mg Furosemide (Lasix) 20 mg IVP Q12 [facility] Last Admin: 01/27/17 09:32 Dose: 20 mg diltiaZEM IVPB 100mg in NS (Cardizem 100mg In Ns) 100 mls @ 10 mls/hr IV .Q10H PRN; Protocol; 10 MG/HR PRN Reason: TITRATE PER MD ORDER Last Admin: 01/27/17 08:04 Dose: 10 mg/hr, 10 mls/hr Meropenem 1g/NS 100mL IVPB (Meropenem 1g/Ns 100ml Ivpb) 1 gm in 100 mls @ 100 mls/hr IVPB STAT STA PRN Reason: Protocol Stop: 01/27/17 11:12 Insulin Human Regular (Humulin R Med) 0 units SC ACHS [facility] PRN Reason: Protocol Last Admin: 01/27/17 09:30 Dose: 3 units Lisinopril (Zestril) 10 mg PO DAILY [facility] Last Admin: 01/27/17 09:32 Dose: 10 mg Metoprolol Tartrate (Lopressor) 25 mg PO BID [facility] Last Admin: 01/27/17 09:31 Dose: 25 mg Pantoprazole Sodium (Protonix Ec Tab) 40 mg PO 0600 [facility] Last Admin: 01/27/17 06:27 Dose: 40 mg Physical Exam - Constitutional Appears: Non-toxic, No Acute Distress - Head Exam Head Exam: NORMAL INSPECTION - ENT Exam ENT Exam: Mucous Membranes Moist - Neck Exam Neck exam: Negative for: Lymphadenopathy, Meningismus - Respiratory Exam Respiratory Exam: Decreased Breath Sounds - Cardiovascular Exam Cardiovascular Exam: +S1, +S2 - GI/Abdominal Exam GI & Abdominal Exam: Soft. absent: Tenderness - Back Exam Back exam: absent: CVA tenderness (L), CVA tenderness (R) Results - Vital Signs Recent Vital Signs: Last Vital Signs Temp 98 F 01/27/17 06:00 Pulse 86 01/27/17 09:32 Resp 20 01/27/17 06:00 BP 124/56 L 01/27/17 09:32 Pulse Ox 96 01/27/17 06:00 - Labs Result Diagrams: 01/27/17 07:30 01/27/17 07:30 Labs: Laboratory Results - last 24 hr 01/26/17 01/26/17 01/26/17 11:02 15:56 21:28 WBC RBC Hgb Hct MCV MCH MCHC RDW Plt Count MPV Gran % Lymph % (Auto) [place] % (Auto) Eos % (Auto) Baso % (Auto) Gran # Lymph # [place] # Eos # Baso # Sodium Potassium Chloride Carbon Dioxide Anion Gap BUN Creatinine Est GFR ( Amer) Est GFR (Non-Af Amer) POC Glucose (mg/dL) 188 H 217 H 262 H Random Glucose Calcium Total Bilirubin AST ALT Alkaline Phosphatase Total Protein Albumin Globulin Albumin/Globulin Ratio 01/27/17 01/27/17 01/27/17 07:30 07:30 08:22 WBC 4.3 L RBC 3.84 Hgb 13.2 Hct 38.2 MCV 99.5 MCH 34.4 MCHC 34.6 RDW 12.8 Plt Count 216 MPV 11.1 H Gran % 44.7 L Lymph % (Auto) 39.5 H [place] % (Auto) 9.4 H Eos % (Auto) 5.9 H Baso % (Auto) 0.5 Gran # 1.90 Lymph # 1.7 [place] # 0.4 Eos # 0.3 Baso # 0.02 Sodium 141 Potassium 3.5 L Chloride 106 Carbon Dioxide 26 Anion Gap 13 BUN 19 Creatinine 1.0 Est GFR ( Amer) > 60 Est GFR (Non-Af Amer) 52 POC Glucose (mg/dL) 209 H Random Glucose 178 H Calcium 8.8 Total Bilirubin 0.6 AST 25 ALT 32 Alkaline Phosphatase 75 Total Protein 6.6 Albumin 3.5 Globulin 3.1 Albumin/Globulin Ratio 1.1 Assessment & Plan - Assessment and Plan (Free Text) Plan: Assessment Consider asymptomatic bacteriuria (with ESBL E. coli) acute NSTEMI COPD CAD S/P PCI chronic CHF with ischemic cardiomyopathy HTN morbid obesity with BMI 40 Plan Patient was given a dose of IV Merrem this morning - will hold off on antibiotics since she has no symptoms, no findings on physical exam suggestive of UTI will repeat urine cx will monitor clinically
[2017-01-28] MEDS: Pantoprazole 40 mg EC Tab PO SCH (05:14)
[2017-01-28 07:44] LABS: BASO # 0.02 K/mm3 (0.0-2.0); BASO % 0.5 % (0.0-3.0); EOS # 0.2 (0.0-0.7); EOS % 5.6 % (1.5-5.0); GRAN # 1.64 (1.4-6.5); GRAN % 43.5 % (50.0-68.0); HEMATOCRIT 37.3 % (36.0-48.0); LYMPH # 1.5 (1.2-3.4); LYMPH % 39.5 % (22.0-35.0); MEAN CELL VOLUME 98.9 fl (80.0-105.0); MEAN CORPUSCULAR HEMOGLOBIN 33.7 pg (25.0-35.0); MEAN PLATELET VOLUME 10.6 fl (7.0-11.0); MONO # 0.4 (0.1-0.6); MONO % 10.9 % (1.0-6.0); RED CELL DISTRIBUTION WIDTH 12.7 % (11.5-14.5); WHITE BLOOD COUNT 3.8 10^3/ul (4.5-11.0)
[2017-01-28 08:01] LABS: ALB/GLOB RATIO 1.1 (1.1-1.8); ALKALINE PHOSPHATASE 70 U/L (38-126); ALT/SGPT 17 U/L (7-56); AST/SGOT 22 U/L (14-36); BILIRUBIN,TOTAL 0.5 mg/dL (0.2-1.3); BLOOD UREA NITROGEN 17 mg/dL (7-21); CALCIUM 8.9 mg/dL (8.4-10.5); CARBON DIOXIDE 26 mmol/L (21-33); CHLORIDE 106 mmol/L (98-107); GFR AFRICAN-AMERICAN > 60; GLUCOSE,RANDOM 196 mg/dL (70-110); POTASSIUM 3.5 mmol/L (3.6-5.0); SODIUM 141 mmol/L (132-148); TOTAL PROTEIN 6.4 g/dL (5.8-8.3)
[2017-01-28] MEDS ORDERED: Magnesium Citrate Oral SOL (300 ml) PO ONE (08:13)
[2017-01-28] MEDS: Insulin Reg-MEDIUM-Coverage SC SCH ×4 (08:33→21:23)
[2017-01-28] MEDS ORDERED: Potassium Chloride 20 mEq ER Tab PO ONE (10:54)
--- NOTE | 2017-01-28 11:09 | PN ---
DATE: DAILY PROGRESS NOTE SUBJECTIVE: The patient seen and examined at bedside on the telemetry tadeo. No acute events overnight. She remains afebrile and hemodynamically stable. The patient also remains chest pain free. This morning, I had an extensive discussion with both the patient and her daughter, Monalisa, regarding the patient's active cardiac issues and the importance of pursuing a cardiac catheterization. After a long discussion with both the patient and her daughter, the patient is now agreeable to cardiac catheterization. I have spoken with the patient's nurse and informed her of the patient's change of heart and we will coordinate with Dr. Ovalles regarding scheduling for cardiac catheterization. OBJECTIVE: VITAL SIGNS: Temperature 98.4, pulse 80, blood pressure 99/56, respiratory rate 19, and oxygen saturation 98% on room air. GENERAL: No apparent distress. HEENT: PERRL. EOMI. No scleral icterus. No conjunctival pallor. NECK: No JVD. LUNGS: Clear to auscultation. CARDIOVASCULAR: Regular rate and rhythm. Normal S1 and S2. ABDOMEN: Obese, normoactive bowel sounds. Soft, nontender, and nondistended. EXTREMITIES: Trace lower extremity edema bilaterally. NEUROLOGIC: Awake, alert and oriented x3. No focal motor deficits. LABORATORY DATA: CBC reviewed and unremarkable. CMP reviewed and unremarkable with the exception of potassium of 3.5. ASSESSMENT: The patient is an 87-year-old woman with multiple medical comorbidities including coronary artery disease, status post myocardial infarction, status post percutaneous coronary intervention with stent placement, ischemic cardiomyopathy, chronic obstructive pulmonary disease, chronic congestive heart failure, and hypertension, who presented to [facility] with several day history of progressively worsening dyspnea with exertion, bilateral pedal edema and two-pillow orthopnea and who is admitted to the telemetry tadeo for management of pthkv-mm-gjrufsm systolic heart failure exacerbation, and whose hospital course was complicated by development of non-ST elevation myocardial infarction and new onset atrial fibrillation with rapid ventricular response. PLAN: 1. Non-STEMI. Input from Dr. Ovalles noted and appreciated. As above, after an extensive discussion with both the patient and her daughter, the patient is now agreeable to cardiac catheterization. In the interim, the patient will remain on Lopressor 25 mg p.o. b.i.d., aspirin 81 mg p.o. daily and Lipitor 10 mg p.o. daily. 2. Atrial fibrillation with rapid ventricular response, new onset. The patient has been weaned off Cardizem drip and remains on Cardizem 60 mg p.o. t.i.d. She is presently in normal sinus rhythm. Given the patient's history of recurrent fall, we may defer oral anticoagulation therapy despite her CHADS2 score and maintain her on aspirin monotherapy. 3. Dimbj-fp-bikrfll systolic heart failure exacerbation, resolved. We will discontinue Lasix IV as patient remains clinically euvolemic. 4. Ischemic cardiomyopathy. Continue with care as above. 5. Hypertension. Blood pressure controlled. Continue with current medications. 6. Hyperlipidemia. Continue with Lipitor 10 mg p.o. daily. 7. Osteoarthritis. Continue with Tylenol as needed. 8. History of peptic ulcer disease. Continue with Protonix. 9. Insulin-dependent diabetes mellitus. Continue with medium-dose insulin sliding scale. 10. COPD. Continue with supplemental oxygen as needed. 11. Prophylaxis. The patient remains on Protonix and Lovenox. CODE STATUS: FULL CODE. Laci Javed MD
[2017-01-28] MEDS: Sodium Chloride 0.9% 1,000 ML IV SCH ×2 (11:20→21:01)
[2017-01-28] MEDS: diltiaZEM 180 mg/24 Hours CD Cap PO SCH (11:21)
[2017-01-28] MEDS: Enoxaparin 100 mg Syringe SC SCH (12:28)
--- NOTE | 2017-01-28 12:55 | PN ---
CARDIOLOGY FOLLOWUP DATE: 01/28/2017 SUBJECTIVE: The patient is now agreeable to cardiac catheterization after extensive discussion with the patient's family. PHYSICAL EXAMINATION: VITAL SIGNS: Blood pressure varies from 113/99 and heart rate in the 80s and atrial fibrillation. NECK: Negative JVD. LUNGS: Without rales. HEART: With S1 and S2. EXTREMITIES: Without edema. LABORATORY DATA: Hemoglobin is 12.7. Chemistries; glucose is 196. IMPRESSION 1. Non-ST elevation myocardial infarction. 2. Coronary artery disease. 3. History of percutaneous transluminal coronary angioplasty and stent x3 in the past. 4. Diabetes mellitus. 5. Hypercholesterolemia. 6. Resolution of chest pain on medications. PLAN: Given these findings, we will load the patient with Plavix today. We will discontinue her IV Cardizem. We will change her to p.o. long-acting Cardizem. The patient is scheduled for cardiac catheterization in the morning. Mayo Ovalles MD
[2017-01-29] MEDS: Pantoprazole 40 mg EC Tab PO SCH (06:39)
[2017-01-29] MEDS ORDERED: Lidocaine 2% Inj (20ml) ONE (07:15)
[2017-01-29] MEDS ORDERED: Midazolam 2 MG/2 ML VIAL ONE ×2 (07:15→07:33)
[2017-01-29] MEDS ORDERED: Iohexol 350mgl/ml 50 ML ONE (07:16)
[2017-01-29] MEDS ORDERED: Iodixanol 320 MG/ML 200 ML BOTTLE IV ONE (07:16)
[2017-01-29] MEDS ORDERED: Nitroglycerin 50mg in D5W 0 MG/0 ML BOTTLE IV ONE (07:17)
[2017-01-29] MEDS ORDERED: Phenylephrine 10 mg/ml Inj ONE ×2 (07:29→07:56)
[2017-01-29] MEDS ORDERED: Iodixanol 320 MG/ML 100 ML BOTTLE IV ONE (07:29)
[2017-01-29] MEDS: Insulin Reg-MEDIUM-Coverage SC SCH ×4 (07:52→21:55)
[2017-01-29] MEDS: Sodium Chloride 0.9% 1,000 ML IV SCH (07:53)
--- NOTE | 2017-01-29 08:41 | PN ---
DATE: 01/28/2017 LOCATION: The patient was seen in [facility], bed 2 earlier today. SUBJECTIVE: No fevers and no chills. No nausea, no vomiting. PHYSICAL EXAMINATION: VITAL SIGNS: Temperature is 97, blood pressure is 120/60, respiratory rate of 16. HEENT: Unremarkable. NECK: Supple. LUNGS: Decreased breath sounds. HEART: Normal S1, S2. ABDOMEN: Soft. LABORATORY DATA: Reveals a white count of 3.8. Chemistries are noted. Microbiology reveals the E. coli in the urine. Blood cultures have no growth and E. coli in the urine ESBL. ASSESSMENT AND PLAN: This is an 87-year-old female with ESBL E. coli asymptomatic bacteriuria in a patient with acute non-ST elevation myocardial infarction and chronic obstructive lung disease, coronary artery disease, currently off of antibiotics. The patient is at risk for developing nosocomial infections. Wilber Rizvi MD
[2017-01-29 09:39] LABS: BASO # 0.01 K/mm3 (0.0-2.0); BASO % 0.2 % (0.0-3.0); EOS # 0.2 (0.0-0.7); EOS % 3.5 % (1.5-5.0); GRAN # 3.36 (1.4-6.5); HEMATOCRIT 36.4 % (36.0-48.0); LYMPH # 1.4 (1.2-3.4); LYMPH % 26.4 % (22.0-35.0); MEAN CELL VOLUME 100.6 fl (80.0-105.0); MEAN CORPUSCULAR HEMOGLOBIN 33.4 pg (25.0-35.0); MEAN CORPUSCULAR HGB CONC 33.2 g/dl (31.0-37.0); MEAN PLATELET VOLUME 10.7 fl (7.0-11.0); MONO # 0.4 (0.1-0.6); MONO % 7.9 % (1.0-6.0); RED CELL DISTRIBUTION WIDTH 12.7 % (11.5-14.5); WHITE BLOOD COUNT 5.4 10^3/ul (4.5-11.0)
[2017-01-29 09:52] LABS: ALB/GLOB RATIO 1.1 (1.1-1.8); ALKALINE PHOSPHATASE 66 U/L (38-126); ALT/SGPT 36 U/L (7-56); AST/SGOT 37 U/L (14-36); BILIRUBIN,TOTAL 0.4 mg/dL (0.2-1.3); BLOOD UREA NITROGEN 14 mg/dL (7-21); CALCIUM 8.4 mg/dL (8.4-10.5); CARBON DIOXIDE 29 mmol/L (21-33); CHLORIDE 108 mmol/L (98-107); GFR AFRICAN-AMERICAN > 60; GLUCOSE,RANDOM 213 mg/dL (70-110); POTASSIUM 4.4 mmol/L (3.6-5.0); SODIUM 142 mmol/L (132-148)
--- NOTE | 2017-01-29 10:30 | CARDCATH ---
PROCEDURE DATE: 01/29/2017 CARDIAC CATHETERIZATION AND PERCUTANEOUS TRANSLUMINAL CORONARY ANGIOPLASTY HISTORY: The patient is a 87-year-old woman who presents with a [id number] elevation myocardial infarction. The patient is status post coronary artery bypass surgery and PTCA and stent in the past. Because of this, cardiac catheterization was recommended. PROCEDURE: Left heart catheterization with coronary arteriography, left ventriculogram, saphenous vein graft angiogram followed by PTCA and stent of a protected left main artery as well as the mid circumflex artery. The right femoral artery was cannulated with 6-Rwandan sheath. There were no complications. Findings on catheterization revealed a left ventricle that contracted normally. Estimated ejection fraction is between 50% and 55%. Her right coronary artery was occluded. The LAD was occluded in its proximal portion. There is a 80% distal left main stenoses noted followed by a 70% to 80% stenosis in the mid circumflex artery. In between two stents there were placed previously. The saphenous vein graft was a jump graft one to the mid to distal RCA which was patent and provided good antegrade flow. There was a second Y-graft that went to the mid LAD as well as with diagonal vessel. The patient was started on intravenous Angiomax. On the fluoroscopic guide, the guiding catheter was placed to the ostium of the left main artery. An 0.014 ATW wire was used to cross the left main stenoses as well as the mid circumflex stenoses. A 2.5 balloon was utilized to pre-dilate the mid circumflex stenosis as well as to the distal left main stenoses. This is followed by PTCA and stent of the distal left main stenoses with a 3.5 times 12 mm drug-eluting stent expanded to 12 atmospheres of pressure. Repeat coronary arteriography revealed an excellent result with resolution of the two critical lesions and LISA III flow. Angio-Seal was used to close the femoral artery site. The patient tolerated the procedure well. IMPRESSION: In summary, the procedure was successful percutaneous transluminal coronary angioplasty and stent of the distal left main stenoses with a drug-eluting stent. The left main stenosis as a protective left main stenoses. 1. Successful percutaneous transluminal coronary angioplasty of the mid circumflex lesion 2. Cardiac catheterization which revealed triple vessel coronary artery disease with a patent Y graft to the right coronary artery and left anterior descending. 3. Preserved left ventricular function. PLAN: Given these findings, the patient will need to remain on aspirin indefinitely and Plavix for at least a year and undergo a strict cardiac risk reduction program. Mayo Ovalles MD
[2017-01-29] MEDS: diltiaZEM 180 mg/24 Hours CD Cap PO SCH (10:59)
--- NOTE | 2017-01-29 20:50 | CARD ---
APPROVED REPORT EKG Measurement Heart [id number] <Conclusion> Atrial fibrillation Low voltage QRS ST & T wave abnormality, consider anterior ischemia or digitalis effect Prolonged QT Abnormal ECG
--- NOTE | 2017-01-29 22:04 | PN ---
SUBJECTIVE: The patient is an 87-year-old female, in room #277, bed #2. She had a cardiac catheterization today by Dr. Ovalles and 2 stents were placed. There have been no acute events overnight. She is lying calmly in bed and has no complaints at this time. REVIEW OF SYSTEMS: Entirely unremarkable. PHYSICAL EXAMINATION VITAL SIGNS: Temperature of 98.7, pulse rate of 81, blood pressure of 128/70, respiratory rate is 18 with an O2 saturation of 96% on room air. HEENT: CHANDLER. EOMI. There is no icterus present. NECK: Supple with full range of motion. No jugular venous distension or bruits are appreciated. LUNGS: Clear to auscultation and percussion bilaterally. HEART: With regular rate and rhythm. No murmurs, rubs or gallops. ABDOMEN: Soft. It is nontender. There is no organomegaly and bowel sounds are normoactive. EXTREMITIES: Show no deformity with trace edema. NEUROLOGICALLY: The patient is intact. LABORATORY DATA: WBCs are 5.4, hemoglobin and hematocrit are 12.1 and 36.4. Chemistry shows a chloride of 108, random glucose of 213, AST of 37, ALT and alk phos are normal as well as the bilirubin. PROBLEM LIST: At this time; 1. Congestive heart failure. 2. Coronary artery disease, status post stent placement x2. 3. Urinary tract infection. 4. Hypertension. 5. As previously stated, diabetes mellitus. Continue current regimen. The patient will most likely be discharged tomorrow in the morning. David Javed MD
[2017-01-30] MEDS: Pantoprazole 40 mg EC Tab PO SCH ×2 (05:58→06:53)
[2017-01-30 06:47] VITALS: O2SAT 98
[2017-01-30 08:09] LABS: BASO # 0.01 K/mm3 (0.0-2.0); BASO % 0.2 % (0.0-3.0); EOS # 0.2 (0.0-0.7); GRAN # 2.64 (1.4-6.5); GRAN % 57.1 % (50.0-68.0); HEMATOCRIT 36.4 % (36.0-48.0); LYMPH # 1.3 (1.2-3.4); LYMPH % 27.7 % (22.0-35.0); MEAN CORPUSCULAR HEMOGLOBIN 34.1 pg (25.0-35.0); MEAN CORPUSCULAR HGB CONC 34.1 g/dl (31.0-37.0); MEAN PLATELET VOLUME 10.5 fl (7.0-11.0); MONO # 0.5 (0.1-0.6); RED CELL DISTRIBUTION WIDTH 12.8 % (11.5-14.5); WHITE BLOOD COUNT 4.6 10^3/ul (4.5-11.0)
[2017-01-30 08:32] LABS: ALB/GLOB RATIO 1.2 (1.1-1.8); ALKALINE PHOSPHATASE 70 U/L (38-126); ALT/SGPT 46 U/L (7-56); AST/SGOT 65 U/L (14-36); BILIRUBIN,TOTAL 0.5 mg/dL (0.2-1.3); BLOOD UREA NITROGEN 12 mg/dL (7-21); CALCIUM 8.6 mg/dL (8.4-10.5); CARBON DIOXIDE 25 mmol/L (21-33); CHLORIDE 110 mmol/L (98-107); GFR AFRICAN-AMERICAN > 60; GLUCOSE,RANDOM 193 mg/dL (70-110); POTASSIUM 3.9 mmol/L (3.6-5.0); SODIUM 141 mmol/L (132-148); TOTAL PROTEIN 6.2 g/dL (5.8-8.3)
[2017-01-30] MEDS: Insulin Reg-MEDIUM-Coverage SC SCH ×2 (08:32→12:59)
[2017-01-30] MEDS: diltiaZEM 180 mg/24 Hours CD Cap PO SCH (09:39)
[2017-01-30 09:42] VITALS: PULSE 94
--- NOTE | 2017-01-30 09:55 | PN ---
DATE: SUBJECTIVE: The patient is seen and examined at the bedside on the telemetry tadeo. No acute events overnight. She remains afebrile and hemodynamically stable. The patient is status post PCI with a drug-eluding stent placement to the distal left main and mid circumflex reasons. The patient tolerated the procedure well and this morning remains afebrile, hemodynamically stable, and chest pain free and is looking forward to discharge to home. PHYSICAL EXAMINATION: GENERAL: No apparent distress. VITAL SIGNS: Temperature 97.5, pulse 88, blood pressure 129/63, respiratory rate 20, and oxygen saturation 98% on room air. HEENT: PERRL. EOMI. No scleral icterus. No conjunctival pallor. NECK: No JVD. LUNGS: Clear to auscultation. CARDIOVASCULAR: Regular rate and rhythm. Normal S1 and S2. ABDOMEN: Obese. Normoactive bowel sounds. Soft, nontender, and nondistended. EXTREMITIES: Trace lower extremity edema bilaterally. NEUROLOGIC: Awake, alert, and oriented x3. No focal motor deficits. LABORATORY DATA: Morning labs are pending. ASSESSMENT: The patient is an 87-year-old woman with multiple medical comorbidities including coronary artery disease, status post myocardial infarction, status post percutaneous coronary intervention with stent placement, ischemic cardiomyopathy, chronic obstructive pulmonary disease, congestive heart failure, and hypertension, who presented to [facility] with several day history of progressively worsening dyspnea with exertion, bilateral pedal edema, and two-pillow orthopnea and who is admitted to the telemetry tadeo for management of acute on chronic systolic heart failure exacerbation, and whose hospital course was complicated by development of non-ST elevation myocardial infarction and new onset atrial fibrillation with rapid ventricular response. PLAN: 1. Non-STEMI. The patient is status post PCI with stent placement x2 with Dr. Ovalles. She remains hemodynamically stable and chest pain free. The patient will need to enroll in a cardiac risk reduction program. We will continue aspirin 81 mg p.o. daily, Plavix 75 mg p.o. daily, Lopressor 25 mg p.o. b.i.d., and Lipitor 40 mg p.o. daily. 2. Atrial fibrillation with rapid ventricular response, new onset, resolved. The patient remains in normal sinus rhythm. Continue with Cardizem CD 180 mg p.o. daily and Lopressor 25 mg p.o. b.i.d. Given history of falls, we will maintain the patient on aspirin 81 mg p.o. daily monotherapy despite her CHADS-2 score. 3. Acute on chronic systolic heart failure exacerbation, resolved. We will resume Lasix 20 mg p.o. daily upon discharge. 4. Ischemic cardiomyopathy. Continue with care as above. 5. Hypertension. Blood pressure controlled. Continue with current medications. 6. Hyperlipidemia. Continue with Lipitor 40 mg p.o. daily. 7. Osteoarthritis. Continue with Tylenol as needed. 8. History of peptic ulcer disease. We will start the patient on Pepcid 40 mg p.o. daily assist in my interaction with her Plavix. 9. Insulin dependent diabetes mellitus. The patient to resume her insulin regimen upon discharge. 10. COPD. Continue with supplemental oxygen as needed. 11. Prophylaxis. The patient remains on Protonix and Venodyne. 12. Disposition. The patient will be discharged to home today. CODE STATUS: FULL CODE. Laci Javed MD
[2017-01-30 12:31] VITALS: BP 141/66; RESP 19; TEMP 97.1
--- NOTE | 2017-01-30 16:03 | PN ---
SUBJECTIVE: The patient denies any chest pain. She complains of left foot pain. She underwent successful PCI to the mid circumflex artery region as well as proximal portion of that vessel. I did review her cardiac cath and intervention images which revealed a patent Y-graft to the right coronary artery and to the LAD with preserved left ventricular systolic function. OBJECTIVE: VITAL SIGNS: Blood pressure 141/66, heart rate 94, temperature 97.1, respirations 19. HEENT: Normocephalic. CHEST: Diminished breath sounds at the bases. HEART: S1 and S2 regular. EXTREMITIES: No pedal edema. No ischemic foot changes. Trace dorsalis pedis pulse bilaterally. LABORATORY DATA: Hemoglobin, hematocrit, white count, and platelet count are within normal limits. SMA-7 is within normal limits except glucose of 193 and chloride of 110. ASSESSMENT: 1. Status post percutaneous coronary intervention to the circumflex artery. 2. Uncontrolled diabetes mellitus. 3. Hypertension. RECOMMENDATIONS: Continue current Cardizem at 180 mg once a day, aspirin 81 mg once a day, Lipitor 40 mg once a day, Plavix 75 mg once a day, Protonix at 40 mg once a day, Crestor at 10 mg once a day. The plan is to discharge the patient home if there is some family member to pick her up. Abdon Reddy MD
--- NOTE | 2017-01-30 19:05 | CARD ---
APPROVED REPORT EXAM: Two-dimensional and M-mode echocardiogram with Doppler and color Doppler. INDICATION 2D DIMENSIONS IVSd1.1 (0.7-1.1cm)LVDd4.2 (3.9-5.9cm) LVOT Diameter1.8 (1.8-2.4cm)PWd1.2 (0.7-1.1cm) LVDs4.0 (2.5-4.0cm)FS (%) 5.0 % LVEF (%)11.4 (>50%) M-Mode DIMENSIONS Left Atrium (MM)4.80 (2.5-4.0cm)Aortic Root2.90 (2.2-3.7cm) Aortic Cusp Exc.1.50 (1.5-2.0cm) Aortic Valve AoV Peak Pqhesvpl369.0cm/sAoV VTI37.5cmAO Peak GR.15mmHg LVOT Peak Rhkleuni91.9cm/sLVOT VTI15.00cmAO Mean GR.7mmHg NORA (VMAX)1.67ik6IGL (VTI)1.02cm2 Mitral Valve MV E Ocjzkael349.0cm/s TDI Lateral E' Peak V9.46cm/sMedial E' Peak V8.09cm/sE/Lateral E'14.3 E/Medial E'16.7 Tricuspid Valve TR Peak Auxnjvfy215vu/sRAP ADFFAFPS09gpVeSF Peak Gr.54mmHg DVEM10cvFx LEFT VENTRICLE The left ventricle is normal size. There is normal left ventricular wall thickness. The systolic function is severely impaired. Sever Septal hypokinesis RIGHT VENTRICLE The right ventricle is normal size. There is normal right ventricular wall thickness. The right ventricular systolic function is normal. ATRIA The left atrium is moderately dilated. The right atrium is mildly dilated. AORTIC VALVE The aortic valve is not well visualized. There is mild aortic regurgitation. There is mild valvular aortic stenosis. MITRAL VALVE Mitral regurgitation is moderate. TRICUSPID VALVE There is moderate pulmonary hypertension. GREAT VESSELS The aortic root is normal in size. The IVC collapses <50% with inspiration. <Conclusion> Poor Echo Window The left ventricle is normal size. There is normal left ventricular wall thickness. The systolic function is severely impaired. Sever Septal hypokinesis There is mild aortic regurgitation. There is mild valvular aortic stenosis. Mitral regurgitation is moderate. There is moderate pulmonary hypertension.
--- NOTE | 2017-01-30 19:23 | CARD ---
APPROVED REPORT EKG Measurement Heart [id number] <Conclusion> Atrial fibrillation Low voltage QRS Cannot rule out Anterior infarct, age undetermined Abnormal ECG
--- NOTE | 2017-02-01 16:12 | DS ---
ADMITTING DIAGNOSIS: Acute on chronic systolic heart failure exacerbation. DISCHARGE DIAGNOSES: Acute on chronic systolic heart failure exacerbation (resolved), NSTEMI s/p PCI with TAMIE stent placement SECONDARY DIAGNOSES: Atrial fibrillation (new onset), ischemic cardiomyopathy, insulin-dependent diabetes mellitus, hypertension, hyperlipidemia, and morbid obesity. CONSULTATIONS: Dr. Ovalles (cardiology) IMAGING STUDIES: 1. Chest x-ray which demonstrated biapical pleural thickening with mild-to- moderate pulmonary venous congestion with cardiomegaly. 2. CT of the head without contrast which demonstrated no acute pathology. 3. Bilateral lower extremity venous ultrasound with Doppler which demonstrated no evidence of DVT. 4. Renal ultrasound which demonstrated bilateral renal cyst, but no hydronephrosis. DIAGNOSTIC STUDIES: 1. TTE which demonstrated normal LV size with severely impaired systolic function, mild aortic regurgitation, mild aortic stenosis and moderate mitral regurgitation with moderate pulmonary hypertension. PROCEDURES: Cardiac catheterization with placement of drug-eluting stent to the distal left main stenosis and mid circumflex lesion. HISTORY OF PRESENT ILLNESS: The patient is an 87-year-old woman with past medical history of congestive heart failure, insulin-dependent diabetes mellitus, hyperlipidemia, hypertension , and COPD who presented to [facility] with several-day history of worsening lower extremity edema, orthopnea and exertional dyspnea who was admitted to the telemetry tadeo for management of acute on chronic systolic heart failure exacerbation. The patient stated that she was in her usual state of health until approximately 1 week prior to presentation when she developed the aforementioned symptoms. She denied chest pain or palpitations associated with her symptoms and reported compliance with her medications; however, she appeared to be noncompliant with her dietary restrictions which consist mostly of frozen TV dinners which she was informed are very high in sodium. On the day of presentation to the emergency department, she was noted to complain of malaise and generalized fatigue. Upon arrival to the ED, she was afebrile and hemodynamically stable but mildly tachypneic. Laboratory studies demonstrated a markedly elevated BNP of 1950 and a chest x-ray which demonstrated cardiomegaly and pulmonary venous congestion in a CHF pattern. She received intravenous Lasix and was admitted to the telemetry tadeo for management of acute on chronic systolic heart failure exacerbation. HOSPITAL COURSE: Upon admission to the telemetry tadeo the patient was maintained on Lasix 40 mg IV q. [address] Ovalles of cardiology was consulted for further evaluation. The patient's cardiac enzymes were cycled for 3 sets and over the following 24 hours, the patient was noted to develop new-onset atrial fibrillation with rapid ventricular response. She was also noted to have a troponin leak with her troponin values peaking at 0.24. Given her development of new-onset atrial fibrillation with rapid ventricular response she was started on a Cardizem drip. There was also discussion with the patient regarding the need for a cardiac catheterization given her development of a non-ST elevation VT. Initially, the patient had adamantly declined any further intervention; however , after a discussion with both the patient's daughter and the patient, she was agreeable to pursuing a cardiac catheterization. She was successfully brought to the cardiac catheterization lab with Dr. Ovalles of cardiology and underwent successful PCI with stent placement x2 as described above. Her postprocedure course was uncomplicated and afterwards she was noted to have resolution of her atrial fibrillation with spontaneous return to normal sinus rhythm. She also remained hemodynamically stable and chest pain free and by hospital day #5 she was deemed stable for discharge to home. CONDITION: Good, improved. DISPOSITION: To home. DISCHARGE MEDICATIONS: Aspirin 81 mg p.o. daily, Plavix 75 mg p.o. daily, Lopressor 25 mg p.o. b.i.d., Lipitor 40 mg p.o. daily, Diltiazem 180 mg p.o. daily, Lisinopril 10 mg p.o. daily, Pepcid 40 mg p.o. daily and Novolin 70/30 30 units subcutaneously b.i.d. DISCHARGE INSTRUCTIONS: The patient was advised to adhere to a heart-healthy diet as advised. She was also advised to enroll in cardiac risk reduction program and to return to her PMD or to the nearest emergency department immediately if she were to develop any recurrence of her presenting symptoms or if she were to develop any chest pain, palpitations, dyspnea, or 2 to 3 pillow orthopnea. FOLLOWUP: The patient to follow up with her PMD within 1 week of discharge. The patient to follow up with Dr. Ovalles of cardiology as scheduled. Laci Javed MD ETHAN
== END 2017-01-30 14:02 | disposition home or self-care (01) | DRG 246 ==
LOC: ED 16:37 → ERH 20:14 → 2RSO 21:31 → OBSVTOIN 01-26 08:18
PROVIDERS: ADMIT Student in an Organized Health Care Education/Training Program; ATTEND Internal Medicine
PROC: 027135Z Dilation of Coronary Artery, Two Arteries with Two Drug-eluting Intraluminal Devices, Percutaneous Approach (ICD-10-PCS; principal; 2017-01-29)
PROC: 4A023N7 Measurement of Cardiac Sampling and Pressure, Left Heart, Percutaneous Approach (ICD-10-PCS; 2017-01-29)
PROC: B2111ZZ Fluoroscopy of Multiple Coronary Arteries using Low Osmolar Contrast (ICD-10-PCS; 2017-01-29)
PROC: B2131ZZ Fluoroscopy of Multiple Coronary Artery Bypass Grafts using Low Osmolar Contrast (ICD-10-PCS; 2017-01-29)
PROC: B2151ZZ Fluoroscopy of Left Heart using Low Osmolar Contrast (ICD-10-PCS; 2017-01-29)
DX: I21.4 Non-ST elevation (NSTEMI) myocardial infarction (principal); I50.23 Acute on chronic systolic (congestive) heart failure; E11.65 Type 2 diabetes mellitus with hyperglycemia; G93.89 Other specified disorders of brain; N39.0 Urinary tract infection, site not specified; Z68.41 Body mass index [BMI] 40.0-44.9, adult; Z95.1 Presence of aortocoronary bypass graft; E66.01 Morbid (severe) obesity due to excess calories; I11.0 Hypertensive heart disease with heart failure; E78.00 Pure hypercholesterolemia, unspecified; E78.5 Hyperlipidemia, unspecified; F51.02 Adjustment insomnia; I25.10 Atherosclerotic heart disease of native coronary artery without angina pectoris; I25.2 Old myocardial infarction; I25.5 Ischemic cardiomyopathy; I48.91 Unspecified atrial fibrillation; J01.90 Acute sinusitis, unspecified; J44.9 Chronic obstructive pulmonary disease, unspecified; Z79.4 Long term (current) use of insulin; Z79.82 Long term (current) use of aspirin; Z86.73 Personal history of transient ischemic attack (TIA), and cerebral infarction without residual deficits; Z87.11 Personal history of peptic ulcer disease; M19.90 Unspecified osteoarthritis, unspecified site; Z91.11 Patient's noncompliance with dietary regimen; R32 Unspecified urinary incontinence; B96.20 Unspecified Escherichia coli [E. coli] as the cause of diseases classified elsewhere

== ENCOUNTER 2017-02-02 10:31 | Emergency (ER) | payer MEDICARE ==
[2017-02-02 10:32] VITALS: BMI 37.9
--- NOTE | 2017-02-02 12:19 | ED PDOC ---
Arrival/HPI - General Chief Complaint: Weakness/Neurological Deficit Time Seen by Provider: 02/02/17 10:36 Historian: Patient - History of Present Illness Narrative History of Present Illness (Text): 02/02/17 10:36 A 87 year old female, whose past medical history includes CHF and hypertension, presents to the emergency department complaining of weakness for over 1 week. Patient's daughter reports patient came to hospital several days ago and had two cardiac stents placed. Post stent placement, patient has had difficulty ambulating. Patient was sent to rehab home in order to regain strength and later returned home. Patient was suppose to have a physical therapist and nurse to aid her in continuing recovery but they never arrived. Today patient was unable to get out of bed and had to go to ER due to weakness. Patient notes experiencing dizziness and food intolerance, but denies of any other complaints. PMD: Dr. Javed Past Medical History - Provider Review Nursing Documentation Reviewed: Yes - Infectious Disease Hx of Infectious Diseases: None - Tetanus Immunization Tetanus Immunization: Unknown - Reproductive Menopause: Yes - Cardiac Hx Congestive Heart Failure: Yes Hx Hypertension: Yes Other/Comment: cardiac stent - Pulmonary Hx Respiratory Disorders: No - Renal Hx Renal Failure: Yes - Endocrine/Metabolic Hx Diabetes Mellitus Type 2: Yes - Musculoskeletal/Rheumatological Hx Falls: Yes - Gastrointestinal Hx Gall Bladder Disease: Yes (Gallstones) - Genitourinary/Gynecological Hx Incontinence: Yes - Psychiatric Hx Depression: No Hx Emotional Abuse: No Hx Physical Abuse: No Hx Substance Use: No - Surgical History Hx Coronary Stent: Yes - Anesthesia Hx Anesthesia Reactions: No - Suicidal Assessment Feels Threatened In Home Enviroment: No Family/Social History - Physician Review Nursing Documentation Reviewed: Yes Family/Social History: No Known Family HX Smoking Status: Never Smoked Hx Alcohol Use: No Hx Substance Use: No Allergies/Home Meds Allergies/Adverse Reactions: Allergies No Known Allergies Allergy (Verified 09/21/11 19:14) Home Medications: Home Meds Medication Instructions Recorded Confirmed Fosinopril [Monopril] 10 mg PO DAILY 12/19/12 02/02/17 Furosemide [Lasix] 20 mg PO TID 12/19/12 02/02/17 Insulin Human (NPH)/Regular 35 units SC DAILY 12/19/12 02/02/17 [Novolin 70/30 (70/30 units/ml) 10 ml] Potassium Chloride 10 meq PO DAILY 12/19/12 02/02/17 Zolpidem [Ambien] 10 mg PO HS 12/19/12 02/02/17 Aspirin [Aspirin Chewable] 1 tab PO DAILY 01/24/17 02/02/17 Docusate [Colace] 1 cap PO BID 01/24/17 02/02/17 Insulin Human (NPH)/Regular 30 units SC ACD 01/24/17 02/02/17 [Novolin 70/30 (70/30 units/ml) 10 ml] Omeprazole 1 tab PO BID 01/24/17 02/02/17 Simvastatin [Zocor] 1 tab PO HS 01/24/17 02/02/17 Review of Systems - Physician Review All systems were reviewed & negative as marked: Yes - Review of Systems Constitutional: Other (generalized weakness, difficulty ambulating). absent: Fevers, Night Sweats Respiratory: absent: SOB Gastrointestinal: Appetite Changes, Food Intolerance. absent: Abdominal Pain, Diarrhea, Nausea, Vomiting Neurological: Dizziness Physical Exam Vital Signs Reviewed: Yes Vital Signs Temp Pulse Resp BP Pulse Ox 02/02/17 16:03 96 H 17 144/66 98 02/02/17 10:32 98.2 F 91 H 16 132/56 L 97 Temperature: Afebrile Blood Pressure: Normal Pulse: Regular Respiratory Rate: Normal Appearance: Positive for: Well-Appearing, Other (obese) Pain Distress: None Mental Status: Positive for: Alert and Oriented X 3 Finger Stick Blood Glucose: 91 - Systems Exam Head: Present: Atraumatic, Normocephalic Pupils: Present: PERRL Extroacular Muscles: Present: EOMI Conjunctiva: Present: Normal Mouth: Present: Moist Mucous Membranes Neck: Present: Normal Range of Motion Respiratory/Chest: Present: Clear to Auscultation Cardiovascular: Present: Regular Rate and Rhythm, Normal S1, S2. No: Murmurs Abdomen: Present: Normal Bowel Sounds. No: Tenderness, Distention, Peritoneal Signs Back: Present: Normal Inspection Upper Extremity: Present: Normal Inspection. No: Cyanosis, Edema Lower Extremity: Present: Edema Neurological: Present: GCS=15, CN II-XII Intact, Speech Normal, Motor Func Grossly Intact, Normal Sensory Function, Normal Cerebellar Funct, Norm Deep Tendon Reflexes, Memory Normal, Normal 2Pt Descrimination Skin: Present: Warm, Dry, Normal Color. No: Rashes Psychiatric: Present: Alert, Oriented x 3, Normal Insight, Normal Concentration Medical Decision Making ED Course and Treatment: 02/02/17 10:42 Impression: 87 year old female with generalized weakness. Differential Diagnosis included but are not limited to: Inability to ambulate vs Weakness Plan: -- Labs -- Urinalysis -- Reassess and disposition Prior Visits: Notes and results from previous visits were reviewed. Patient was last seen in the emergency department on 01/24/2017 for generalized weakness. Patient was admitted. Progress Notes: 02/02/2017 12:[address] Laci Javed and he agrees to place patient under TCU. TCU consult ordered. 02/02/17 16:11 Case discussed with Electronics Repair Technician/Case Management Stephany Taylor who has arranged for patient to get SubAcute Rehab at [facility]. Patient and daughter are very happy with this decision and they will agree to the transfer. Accepting physician Dr. Lim. - Lab Interpretations Lab Results: 02/02/17 12:14 02/02/17 12:30 Lab Results 02/02/17 12:30: Sodium 142, Potassium 3.5 L, Chloride 106, Carbon Dioxide 27, Anion Gap 13, BUN 11, Creatinine 0.8, Est GFR ( Amer) > 60, Est GFR (Non- Af Amer) > 60, Random Glucose 98, Calcium 8.9, Total Bilirubin 0.5, AST 32, ALT 45, Alkaline Phosphatase 82, Total Protein 6.7, Albumin 3.7, Globulin 3.0, Albumin/Globulin Ratio 1.2 02/02/17 12:14: PT 11.0, INR 1.02, APTT 26.1 02/02/17 12:14: WBC 4.2 L, RBC 3.85, Hgb 13.0, Hct 37.9, MCV 98.4, MCH 33.8, MCHC 34.3, RDW 13.3, Plt Count 245, MPV 10.8, Gran % 63.6, Lymph % (Auto) 25.0, [place] % (Auto) 8.8 H, Eos % (Auto) 2.4, Baso % (Auto) 0.2, Gran # 2.67, Lymph # 1.1 L, [place] # 0.4, Eos # 0.1, Baso # 0.01 02/02/17 12:08: POC Glucose (mg/dL) 91 - Medication Orders Current Medication Orders: Discontinued Medications Acetaminophen (Tylenol 325mg Tab) 650 mg PO STAT STA Stop: 02/02/17 14:47 Last Admin: 02/02/17 14:54 Dose: 650 mg - Scribe Statement The provider has reviewed the documentation as recorded by the Carlito Fernandez Provider Scribe Attestation: All medical record entries made by the Ethanibkillian were at my direction and personally dictated by me. I have reviewed the chart and agree that the record accurately reflects my personal performance of the history, physical exam, medical decision making, and the department course for this patient. I have also personally directed, reviewed, and agree with the discharge instructions and disposition. Disposition/Present on Arrival - Present on Arrival Any Indicators Present on Arrival: No History of DVT/PE: No History of Uncontrolled Diabetes: No Urinary Catheter: No History of Decub. Ulcer: No History Surgical Site Infection Following: None - Disposition Have Diagnosis and Disposition been Completed?: Yes Diagnosis: Leg weakness, bilateral, Ataxia Disposition: Trans to Other Acute Care Hosp Disposition Time: 16:13 Patient Plan: Transfer To (Subacute rehab at [facility] ) Condition: GOOD Discharge Instructions (ExitCare): Weakness (ED) Referrals: PCP,NO [Primary Care Provider] - Follow up with primary Forms: [employer] (Welsh)
[2017-02-02 12:28] LABS: BASO # 0.01 K/mm3 (0.0-2.0); BASO % 0.2 % (0.0-3.0); EOS # 0.1 (0.0-0.7); EOS % 2.4 % (1.5-5.0); GRAN # 2.67 (1.4-6.5); GRAN % 63.6 % (50.0-68.0); HEMATOCRIT 37.9 % (36.0-48.0); LYMPH # 1.1 (1.2-3.4); MEAN CELL VOLUME 98.4 fl (80.0-105.0); MEAN CORPUSCULAR HEMOGLOBIN 33.8 pg (25.0-35.0); MEAN CORPUSCULAR HGB CONC 34.3 g/dl (31.0-37.0); MEAN PLATELET VOLUME 10.8 fl (7.0-11.0); MONO # 0.4 (0.1-0.6); MONO % 8.8 % (1.0-6.0); RED CELL DISTRIBUTION WIDTH 13.3 % (11.5-14.5); WHITE BLOOD COUNT 4.2 10^3/ul (4.5-11.0)
[2017-02-02 12:34] LABS: INR 1.02 (0.93-1.08); PARTIAL THROMBOPLASTIN TIME 26.1 Seconds (23.7-30.8)
[2017-02-02 13:07] LABS: ALB/GLOB RATIO 1.2 (1.1-1.8); ALKALINE PHOSPHATASE 82 U/L (38-126); ALT/SGPT 45 U/L (7-56); AST/SGOT 32 U/L (14-36); BILIRUBIN,TOTAL 0.5 mg/dL (0.2-1.3); BLOOD UREA NITROGEN 11 mg/dL (7-21); CALCIUM 8.9 mg/dL (8.4-10.5); CARBON DIOXIDE 27 mmol/L (21-33); CHLORIDE 106 mmol/L (98-107); GFR AFRICAN-AMERICAN > 60; GLUCOSE,RANDOM 98 mg/dL (70-110); POTASSIUM 3.5 mmol/L (3.6-5.0); SODIUM 142 mmol/L (132-148); TOTAL PROTEIN 6.7 g/dL (5.8-8.3)
[2017-02-02 17:18] VITALS: BP 140/79; PULSE 95; RESP 14; TEMP 98.3; O2SAT 99
== END 2017-02-02 17:25 | disposition short-term general hospital (02) ==
LOC: ED 10:31
DX: R27.0 Ataxia, unspecified (principal); M62.81 Muscle weakness (generalized); I11.0 Hypertensive heart disease with heart failure; I50.9 Heart failure, unspecified; E11.9 Type 2 diabetes mellitus without complications